=== PATIENT | female | born 1980 | race Caucasian/White ===

== ENCOUNTER 2023-11-15 05:51 | Emergency (ER) | payer OTHER ==
[~2023-11-15] VITALS: Ht 152.4 cm; Wt 95.5 kg
[2023-11-15 06:23] VITALS: TEMP 98.3
[2023-11-15 06:25] VITALS: PULSE 80; RESP 13; O2SAT 96
[2023-11-15 07:53] LABS: Basophils # (auto) 0 10 ^3/uL (0-0.2); Basophils % (auto) 0.4 % (0.0-2.0); Eosinophils # (auto) 0.2 10 ^3/uL (0-0.8); Eosinophils % (auto) 2.3 % (0.0-7.0); Hematocrit 38.1 % (36.0-46.0); Hemoglobin 12.9 g/dL (12.2-16.2); Lymphocytes # (auto) 1.5 10 ^3/uL (0.4-5.4); Lymphocytes % (auto) 23.2 % (10.0-50.0); Mean Corpuscular Hemoglobin 30.4 pg (28.0-32.0); Mean Corpuscular Volume 89.3 fL (80.0-100.0); Monocytes # (auto) 0.2 10 ^3/uL (0-1.3); Monocytes % (auto) 3.3 % (0.0-12.0); Neutrophils # (auto) 4.7 10 ^3/uL (1.6-8.6); Neutrophils % (auto) 70.8 % (37.0-80.0); Nucleated Red Blood Cells % 0.1 %; Red Blood Cells 4.26 10^6/uL (4.0-5.20); Red Cell Distribution Width 12.6 % (11.8-14.3); White Blood Cell 6.7 10^3/uL (4.4-10.8)
[2023-11-15 08:00] VITALS: PULSE 63; RESP 12; O2SAT 97
[2023-11-15 08:10] LABS: Alanine Aminotransferase 83 U/L (7-40); Albumin 4.3 g/dL (3.2-4.8); Alkaline Phosphatase 113 U/L (46-116); Anion Gap 6 (5-15); Aspartate Aminotransferase 74 U/L (13-40); BUN/Creatinine Ratio 17.8 (10.0-20.0); Bilirubin, Total 0.5 mg/dL (0.2-1.0); Blood Urea Nitrogen 13 mg/dL (9-23); Calcium 8.9 mg/dL (8.5-10.1); Carbon Dioxide 25 mmol/L (20-30); Chloride 109 mmol/L (98-107); Glucose 97 mg/dL (74-106); Magnesium 2.1 mg/dL (1.6-2.6); Potassium 3.9 mmol/L (3.5-5.1); Sodium 140 mmol/L (136-145); Total Protein 6.8 g/dL (5.7-8.2)
[2023-11-15] MEDS: SODIUM CHLORIDE 0.9% 1,000 ML IV ONE (08:13)
[2023-11-15] MEDS: KETOROLAC TROMETH 30 MG/ML 1ML VIAL IV ONE (08:15)
[2023-11-15] MEDS: METOCLOPRAMIDE HCL 5MG/ml INJ 2ml VIAL IV ONE (08:15)
[2023-11-15 08:59] LABS: Lipase 42 U/L (12-53)
[2023-11-15 11:00] VITALS: BP 118/64; PULSE 73; RESP 16; O2SAT 95
[2023-11-15] MEDS ORDERED: METO-281 PO (11:04)
== END 2023-11-15 12:04 | disposition home or self-care (01) ==
LOC: ER 05:51
DX: K76.0 Fatty (change of) liver, not elsewhere classified (principal); R10.2 Pelvic and perineal pain
CPT/HCPCS: 36415; 76705; 80053; 83690; 83735; 84702; 85025; 96361; 96374; 96375; 99285; J1885; J2765; J7030